=== PATIENT | male | born 1965 | race African-American/Black ===

== ENCOUNTER 2019-01-22 05:26 | Outpatient (CLI) | payer MEDICAID | END 2019-01-22 05:27 | disposition critical access hospital (66) | LOC: EMS 05:26 | PROVIDERS: ATTEND Surgery | DX: R60.0 Localized edema (principal); R51 Headache | CPT/HCPCS: A0425; A0429 ==

== ENCOUNTER 2019-01-22 05:43 | Emergency (ER) | payer MEDICAID ==
[2019-01-22] MEDS ORDERED: methylPREDNISolone SUCCINATE 125 MG/2 ML VIAL IVP STA (05:53)
[2019-01-22] MEDS ORDERED: HYDROCORTISONE 1% CREAM 28 GM TUBE TOP ONE (05:56)
[2019-01-22] MEDS ORDERED: diphenhydrAMINE 25 MG CAPSULE PO STA (05:58)
--- NOTE | 2019-01-22 06:02 | ED Physician Documentation ---
History of Present Illness - Stated complaint Stated Complaint: FACIAL SWELLING - Chief complaint Chief Complaint: Allergic Rx - Additonal information Additional information: 53-year-old male history of hypertension who presents with swelling of his face. Patient states that on Tuesday he used a cheap pedro dye that he found at the [employer] store on his pedro, and the next day he began having some irritation of his pedro. He took a shower and washed off the best he could. This morning he woke up and he had swelling of his upper lip and increased swelling of his face. He looked in the mirror when he saw how swollen his face he called 911 and and they brought him here. He denies rash, denies any swelling elsewhere. He has had some clear yellow drainage from the skin. No difficulty breathing, no swelling of his tongue. Review of Systems Constitutional: denies: Fever Nose: denies: Rhinorrhea / runny nose Cardiac: denies: Chest pain / pressure Respiratory: denies: Dyspnea GI: denies: Abdominal Pain, Vomiting PD PAST MEDICAL HISTORY - Past Medical History Past Medical History: Yes Cardiovascular: Hypertension Psych: Anxiety - Past Surgical History Past Surgical History: No - Present Medications Home Medications: Ambulatory Orders Medication Instructions Recorded Confirmed Cephalexin [Keflex] 500 mg PO Q6H #20 capsule 01/22/19 Hydrocortisone 1% Oint 28 gm TP BID 5 Days #1 tube 01/22/19 [Hydrocortisone] diphenhydrAMINE [Benadryl] 25 mg PO Q4-6H PRN #20 capsule 01/22/19 predniSONE [Deltasone] 10 mg PO [id number] #42 tab 01/22/19 - Allergies Allergies/Adverse Reactions: Allergies Allergy/AdvReac Type Severity Reaction Status Date / Time No Known Drug Allergies Allergy Verified 01/22/19 05:45 - Social History Does the pt smoke?: Yes Smoking Status: Current every day smoker Does the pt drink ETOH?: No Does the pt have substance abuse?: No - Immunizations Immunizations are current?: Yes - POLST Patient has POLST: No PD ED PE NORMAL - Vitals Vital signs reviewed: Yes - General General: Alert and oriented X 3 - HEENT HEENT: Other (Over the lower face and the suspicion of a goatee there is erythema, edema, and some serous drainage/crusting. The upper lip is edematous externally. There are no mucosal lesions, no tongue swelling, no lower lip swelling.) - Neck Neck: Supple, no meningeal sign - Cardiac Cardiac: RRR, No murmur - Respiratory Respiratory: No respiratory distress, Clear bilaterally - Abdomen Abdomen: Normal bowel sounds, Soft, Non tender, Non distended - Extremities Extremities: No deformity - Neuro Neuro: Alert and oriented X 3 - Psych Psych: Normal mood, Normal affect Results - Vitals Vitals: Vital Signs - 24 hr 01/22/19 05:45 Temperature 37.2 C Heart Rate 92 Respiratory 16 Rate Blood Pressure 152/99 H O2 Saturation 100 Oxygen O2 Source Room air PD MEDICAL DECISION MAKING - ED course Complexity details: considered differential (Contact dermatitis, allergic reaction, anaphylaxis, angioedema) ED course: On exam patient has some swelling and erythema around his mouth and distribution of his pedro, but the internal surface of the mouth are spared, he has no tongue swelling, no difficulty breathing, and a widely patent airway. On exam patient has an obvious contact dermatitis. He was given Solu-Medrol as well as Benadryl, and observed in the emergency department for several hours. During this time he had slow and gradual improvement in his swelling. He has no signs of anaphylaxis or more serious allergic reaction at this time. We did attempt to trim patient's pedro to prevent more allergen exposure. I spoke with him and explained the diagnosis and the likely course of his illness, prescribed him a steroid taper, Benadryl, hydrocortisone ointment, and keflex (Wounds are at high risk for superinfection and it is difficult to distinguish this from the dermatitis clinically, so we will cover for 5 days). Patient feels comfortable discharging home, and continues to have no trouble breathing and no progression of his symptoms. Strict return precautions including any intraoral lesions, tongue swelling, or breathing, diffuse rash, vomiting, worsening swelling, or fe alex were discussed, and patient was discharged home. Departure - Departure Disposition: 01 Home, Self Care Clinical Impression: Contact allergic reaction Condition: Good Prescriptions: Cephalexin [Keflex] 500 mg PO Q6H #20 capsule diphenhydrAMINE [Benadryl] 25 mg PO Q4-6H PRN #20 capsule PRN Reason: Allergy Symptoms Hydrocortisone 1% Oint [Hydrocortisone] 28 gm TP BID 5 Days #1 tube predniSONE [Deltasone] 10 mg PO [id number] #42 tab Comments: You were seen today due to an allergic reaction to pedro dye. You were given steroids, this should help with the swelling. Please use the hydrocortisone ointment twice a day on the affected region. Take the entire course of the steroid taper. You may also take Benadryl as prescribed. I am prescribing you 5 days of antibiotic to help prevent your skin from becoming infected, please take the entire course. If you are lips are becoming more swollen, if you are having any difficulty breathing, if you are having swelling of your tongue, or any other concerning symptoms, return to the emergency department immediately. Forms: Activity restrictions
[2019-01-22 07:54] VITALS: BP 158/96
== END 2019-01-22 07:54 | disposition home or self-care (01) ==
LOC: ED 05:43
DX: L23.4 Allergic contact dermatitis due to dyes (principal); I10 Essential (primary) hypertension; F17.200 Nicotine dependence, unspecified, uncomplicated
CPT/HCPCS: 96374; 99284; A9270

== ENCOUNTER 2019-02-06 09:55 | Emergency (ER) | payer MEDICAID ==
[2019-02-06] MEDS ORDERED: ONDANSETRON 4 MG/2 ML VIAL IVP STA (10:26)
[2019-02-06] MEDS ORDERED: SODIUM CHLORIDE 0.9% 1,000 ML IV ONE (10:26)
--- NOTE | 2019-02-06 10:26 | ED Physician Documentation ---
History of Present Illness - Stated complaint Stated Complaint: ABD PX/VOMITING - Chief complaint Chief Complaint: Abd Pain - Additonal information Additional information: This is a 53-year-old male who presents with nausea vomiting and generalized abdominal discomfort, as well as urinary urgency. Patient states that multiple people at his work have been sick, and several days ago he began feeling under the weather. He now has some diffuse Abdominal cramping and soreness, which is worse in the left upper quadrant in the left lower quadrant. Since yesterday he began having some urinary urgency, at times has been unable to make it to the bathroom before he urinates. He has had no diarrhea, no fecal incontinence. No weakness or numbness in his legs or arms. Review of Systems Constitutional: denies: Fever Cardiac: denies: Chest pain / pressure Respiratory: denies: Dyspnea GI: reports: Abdominal Pain, Vomiting : reports: Frequency Neurologic: denies: Focal weakness, Numbness PD PAST MEDICAL HISTORY - Past Medical History Cardiovascular: Hypertension Psych: Anxiety - Past Surgical History Past Surgical History: No - Present Medications Home Medications: Ambulatory Orders Medication Instructions Recorded Confirmed Hydrocortisone 1% Oint 28 gm TP BID 5 Days #1 tube 01/22/19 [Hydrocortisone] diphenhydrAMINE [Benadryl] 25 mg PO Q4-6H PRN #20 capsule 01/22/19 Ondansetron Odt [Zofran] 4 mg TL Q6H PRN #10 tablet 02/06/19 Tamsulosin [Flomax] 0.4 mg PO DAILY #14 capsule 02/06/19 hydroCHLOROthiazide 25 mg PO 02/06/19 [Hydrochlorothiazide] hydroCHLOROthiazide 25 mg PO DAILY #30 tablet 02/06/19 [Hydrochlorothiazide] - Allergies Allergies/Adverse Reactions: Allergies Allergy/AdvReac Type Severity Reaction Status Date / Time No Known Drug Allergies Allergy Verified 01/22/19 05:45 - Social History Does the pt smoke?: Yes Smoking Status: Current every day smoker Does the pt drink ETOH?: No Does the pt have substance abuse?: No - Immunizations Immunizations are current?: Yes - POLST Patient has POLST: No PD ED PE NORMAL - Vitals Vital signs reviewed: Yes - General General: Alert and oriented X 3, No acute distress - HEENT HEENT: PERRL - Neck Neck: Supple, no meningeal sign - Cardiac Cardiac: Other (Regular rate and rhythm on my exam) - Respiratory Respiratory: No respiratory distress, Clear bilaterally - Abdomen Abdomen: Soft, Other (Mild left upper quadrant pain and moderate left suprapubic pain to palpation,No guarding, no right lower quadrant or right upper quadrant pain.) - Male Male : Other (Penis and testicles are normal in appearance, he has no testicular tenderness, no overlying skin changes.) - Derm Derm: Warm and dry - Extremities Extremities: No deformity - Neuro Neuro: Alert and oriented X 3, bolt sorter 2-12 intact, No motor deficit, No sensory deficit - Psych Psych: Normal mood, Normal affect Results - Vitals Vitals: Vital Signs - 24 hr 02/06/19 02/06/19 02/06/19 10:00 10:40 11:00 Temperature 37.2 C 37.1 C Heart Rate 114 H 78 97 Respiratory 18 18 18 Rate Blood Pressure 178/117 H 160/103 H 151/103 H O2 Saturation 99 99 97 02/06/19 02/06/19 02/06/19 11:33 12:10 13:29 Temperature 37.0 C Heart Rate 95 90 91 Respiratory 16 16 16 Rate Blood Pressure 167/102 H 160/99 H 158/97 H O2 Saturation 99 99 100 Oxygen O2 Source Room air - Labs Labs: Laboratory Tests 02/06/19 02/06/19 02/06/19 10:02 10:02 10:30 WBC 6.2 RBC 4.82 Hgb 13.8 L Hct 42.2 MCV 87.6 MCH 28.6 MCHC 32.7 RDW 13.2 Plt Count 248 MPV 9.1 Neut # (Auto) 3.3 Lymph # (Auto) 2.3 [place] # (Auto) 0.4 Eos # (Auto) 0.1 Baso # (Auto) 0.0 Absolute Nucleated RBC 0.00 Nucleated RBC % 0.0 Sodium 140 Potassium 4.1 Chloride 100 L Carbon Dioxide 27 Anion Gap 13.0 BUN 15 Creatinine 0.9 Estimated GFR (MDRD) 107 Glucose 109 H Calcium 9.3 Total Bilirubin 0.9 AST 34 ALT 42 Alkaline Phosphatase 70 Total Protein 8.0 Albumin 4.8 Globulin 3.2 Albumin/Globulin Ratio 1.5 Lipase 35 Urine Color YELLOW Urine Clarity CLEAR Urine pH 6.5 Ur Specific [place] 1.010 Urine Protein NEGATIVE Urine Glucose (UA) NEGATIVE Urine Ketones NEGATIVE Urine Occult Blood NEGATIVE Urine Nitrite NEGATIVE Urine Bilirubin NEGATIVE Urine Urobilinogen 0.2 (NORMAL) Ur Leukocyte Esterase NEGATIVE Ur Microscopic Review NOT INDICATED Urine Culture Comments NOT INDICATED - Rads (name of study) CT abd/pelvis Radiology: Other PD MEDICAL DECISION MAKING - ED course Complexity details: considered differential (Gastroenteritis, dehydration, electrolyte abnormality, viral syndrome, UTI, pyelonephritis, acute urinary retention) ED course: On arrival patient is tachycardic in triage, nontoxic-appearing on exam. His heart rate has normalized at the time of my physical exam. He has Some left upper quadrant and left lower quadrant tenderness on examination, no testicular tenderness or lesions, no signs of torsion. He was given Zofran and IV fluids and had some improvement in his symptoms. Labs are unremarkable, urine is negative for infection. Given his urinary incontinence and his tenderness, CT scan was obtained which shows thickened bladder and enlarged prostate suggestive of potential urinary outlet obstruction, no other acute abdominal findings. He has no weakness or numbness in his legs, no specific back pain to suggest cauda equina. Postvoid residual is 195ml. Talking to patient he has had nocturia of ~3 times a night chronically, he also does have increased urinary frequency at baseline. I think that his urinary symptoms are likely due to chronically enlarged prostate, and we will trial him on a course of tamsulosin until he can follow-up with his primary care provider on this. I also discussed that hydrochlorothiazide may not be the best choice for his blood pressure medication as this can lead to urinary frequency as well. Regarding his vomiting, he likely does have a viral syndrome or gastroenteritis, given he has been exposed to multiple people with similar complaints. I discussed supportive care and prescribed him Zofran for this, and emphasized the importance of hydration. Patient agreed with this plan. I discussed return precautions with any neurolo gic symptoms, increasing abdominal pain, persistent vomiting or any other concerning symptoms and patient was discharged home in good condition Departure - Departure Disposition: 01 Home, Self Care Clinical Impression: Vomiting Qualifiers: Vomiting type: unspecified Vomiting Intractability: non-intractable Nausea presence: with nausea Qualified Code(s): R11.2 - Nausea with vomiting, unspecified Condition: Good Instructions: ED Nausea Vomiting Follow-Up: Your,PCP [Other] Prescriptions: hydroCHLOROthiazide [Hydrochlorothiazide] 25 mg PO DAILY #30 tablet Ondansetron Odt [Zofran] 4 mg TL Q6H PRN #10 tablet PRN Reason: Nausea / Vomiting Tamsulosin [Flomax] 0.4 mg PO DAILY #14 capsule Comments: You were seen today for nausea, vomiting, abdominal pain. Your labs are reassuring, your CT scan does show some thickening of your bladder enlargement of your prostate, it is possible that you are having some trouble emptying her bladder completely. You may try the Flomax to help with this, and please follow- up with your primary care provider on this issue. You may also use the Zofran for nausea. It is okay to take Tylenol and ibuprofen for discomfort. If you develop worsening symptoms such as increasing abdominal pain, blood in your vomit, or any other concerning symptoms please return to the emergency department. Forms: Activity restrictions
[2019-02-06 10:27] LABS: BASOPHILS % (AUTO) 0.7 %; EOSINOPHILS # (AUTO) 0.1 10^3/uL (0.0-0.7); EOSINOPHILS % (AUTO) 1.6 %; HGB - HEMOGLOBIN 13.8 g/dL (14.0-18.0); LYMPHOCYTES # (AUTO) 2.3 10^3/uL (1.5-3.5); LYMPHOCYTES % (AUTO) 37.7 %; MEAN CORPUSCULAR HEMOGLOBIN 28.6 pg (27.0-31.0); MEAN CORPUSCULAR HGB CONC 32.7 g/dL (32.0-36.0); MEAN CORPUSCULAR VOLUME 87.6 fL (80.0-94.0); MEAN PLATELET VOLUME 9.1 fL (7.4-11.4); MONOCYTES # (AUTO) 0.4 10^3/uL (0.0-1.0); MONOCYTES % (AUTO) 5.7 %; NEUTROPHILS # (AUTO) 3.3 10^3/uL (1.5-6.6); PLT - PLATELET COUNT 248 10^3/uL (130-450); RED BLOOD COUNT 4.82 10^6/uL (4.70-6.10); RED CELL DISTRIBUTION WIDTH 13.2 % (12.0-15.0); WHITE BLOOD COUNT 6.2 x10^3/uL (4.8-10.8)
[2019-02-06 10:42] LABS: ALBUMIN 4.8 g/dL (3.2-5.5); ALBUMIN/GLOBULIN RATIO 1.5 (1.0-2.2); BILIRUBIN,TOTAL 0.9 mg/dL (0.2-1.0); CALCIUM 9.3 mg/dL (8.5-10.3); CREATININE 0.9 mg/dL (0.6-1.2)
[2019-02-06 10:59] LABS: BILIRUBIN,URINE NEGATIVE (NEGATIVE); GLUCOSE, URINE (UA) NEGATIVE (NEGATIVE); KETONES,URINE (UA) NEGATIVE (NEGATIVE); LEUKOCYTE ESTERASE, URINE NEGATIVE (NEGATIVE); NITRITE,URINE NEGATIVE (NEGATIVE); OCCULT BLOOD,URINE NEGATIVE (NEGATIVE); PH,URINE 6.5 PH (5.0-7.5); PROTEIN,URINE NEGATIVE (NEGATIVE); UROBILINOGEN,URINE 0.2 (NORMAL) E.U./dL (NORMAL)
[2019-02-06 11:02] LABS: CLARITY,URINE CLEAR (CLEAR)
[2019-02-06] MEDS ORDERED: IOVERSOL 320 100 ML VIAL IVP ONE ×2 (12:00→12:18)
--- NOTE | 2019-02-06 13:14 | CT Report ---
Reason: Suprapubic back pain, LUQ pain, uri incontinence Procedure Date: 02/06/2019 Accession Number: [id number] / [id number] Procedure: CT - Abdomen/Pelvis W CPT Code: Final Report FULL RESULT: EXAM: CT ABDOMEN AND PELVIS EXAM DATE: 02/06/2019 12:11 PM. CLINICAL HISTORY: Suprapubic back pain, left upper quadrant pain, urinary incontinence. COMPARISONS: None. TECHNIQUE: Routine helical CT imaging was performed through the abdomen and pelvis. IV contrast: Optiray 320 100 mL. Enteric contrast: No. Reconstructions: Coronal and sagittal. In accordance with CT protocol optimization, one or more of the following dose reduction techniques were utilized for this exam: automated exposure control, adjustment of mA and/or KV based on patient size, or use of iterative reconstructive technique. FINDINGS: Lung Bases: Unremarkable. Liver: Normal. No masses. Gallbladder/Bile Ducts: Unremarkable. Spleen: Normal. Pancreas: Normal. Adrenal Glands: Normal. Kidneys: Normal. No masses or hydronephrosis. Peritoneal Cavity/Bowel: There is no bowel obstruction. There is no free fluid or free air. There is no lymphadenopathy by size criteria. The appendix is not positively identified, there are no inflammatory changes in the cecal region. Pelvic Organs: Focal calcification in the deep left pelvis is felt to represent a phlebolith rather than distal ureterolithiasis. There is mild bladder wall thickening in the setting of a prominent prostate lifting the bladder base. Vasculature: Mild atherosclerotic disease without aneurysm detected. Bones: No significant abnormality. Other: None. IMPRESSION: Mildly thickened bladder wall in the setting of prominent prostate, correlate to symptoms of bladder outlet obstruction. RADIA
[2019-02-06 14:12] VITALS: BP 169/103
== END 2019-02-06 14:12 | disposition home or self-care (01) ==
LOC: ED 09:55
DX: R11.2 Nausea with vomiting, unspecified (principal); R10.12 Left upper quadrant pain; R10.32 Left lower quadrant pain; N40.1 Benign prostatic hyperplasia with lower urinary tract symptoms; R35.0 Frequency of micturition; R35.1 Nocturia; R00.0 Tachycardia, unspecified; I10 Essential (primary) hypertension; F17.200 Nicotine dependence, unspecified, uncomplicated
CPT/HCPCS: 36415; 74177; 80053; 81003; 83690; 85025; 96361; 96374; 99284; Q9967; 81001; 87086

== ENCOUNTER 2019-02-20 12:00 | Outpatient (CLI) | payer MEDICAID | END 2019-02-20 12:01 | disposition critical access hospital (66) | LOC: EMS 12:00 | PROVIDERS: ATTEND Surgery | DX: R45.851 Suicidal ideations (principal) | CPT/HCPCS: A0425; A0429; A0999 ==

== ENCOUNTER 2019-02-20 12:30 | Emergency (ER) | payer MEDICAID ==
--- NOTE | 2019-02-20 13:00 | ED Physician Documentation ---
History of Present Illness - Stated complaint Stated Complaint: SI - Chief complaint Chief Complaint: MHE - Additonal information Additional information: This is a 53-year-old male who is known to me, he is presenting with now reso lved suicidal ideation. Patient lost his job at the [employer] last week and broke up with his girlfriend late last week. Over the weekend he did some binge drinking and this morning he states that felt like his life was collapsing down around him, and he was in a crisis to the point where he was considering taking some medications and attempt to take his life. He did not actually take any medications. He actually stopped taking his zoloft on Tuesday. He called a friend and made a statement to this effect, so his friend called the police. He subsequently called his employer at the [employer] who gave him his job back as long he shows up tomorrow morning. He now states that he feels much better, the main reason for his suicidal ideation was the fact that he lost his girlfriend in addition to losing his job and having very little money. Now that he has his job back he is not suicidal, he has a good plan going forward. He does feel that he is in early stages of alcohol withdrawal given he is drank heavily over the last 2 days. Feels a little bit tremulous. He drank 1 beer earlier this morning but threw it up. He denies other drug use. Review of Systems Constitutional: denies: Fever Cardiac: denies: Chest pain / pressure Respiratory: denies: Dyspnea PD PAST MEDICAL HISTORY - Past Medical History Past Medical History: Yes Cardiovascular: Hypertension Psych: Anxiety - Past Surgical History Past Surgical History: No - Present Medications Home Medications: Ambulatory Orders Medication Instructions Recorded Confirmed Hydrocortisone 1% Oint 28 gm TP BID 5 Days #1 tube 01/22/19 [Hydrocortisone] diphenhydrAMINE [Benadryl] 25 mg PO Q4-6H PRN #20 capsule 01/22/19 Ondansetron Odt [Zofran] 4 mg TL Q6H PRN #10 tablet 02/06/19 Tamsulosin [Flomax] 0.4 mg PO DAILY #14 capsule 02/06/19 hydroCHLOROthiazide 25 mg PO 02/06/19 [Hydrochlorothiazide] hydroCHLOROthiazide 25 mg PO DAILY #30 tablet 02/06/19 [Hydrochlorothiazide] - Allergies Allergies/Adverse Reactions: Allergies Allergy/AdvReac Type Severity Reaction Status Date / Time No Known Drug Allergies Allergy Verified 02/20/19 12:32 - Social History Does the pt smoke?: Yes Smoking Status: Current every day smoker Does the pt drink ETOH?: No Does the pt have substance abuse?: No - Immunizations Immunizations are current?: Yes - POLST Patient has POLST: No PD ED PE NORMAL - Vitals Vital signs reviewed: Yes - General General: Alert and oriented X 3 - HEENT HEENT: Atraumatic - Cardiac Cardiac: Other (Tachycardic at 106 on my exam, regular rate) - Respiratory Respiratory: No respiratory distress, Clear bilaterally - Abdomen Abdomen: Soft, Non tender, Non distended - Neuro Neuro: Alert and oriented X 3, concessionist 2-12 intact, No motor deficit, No sensory deficit Results - Vitals Vitals: Oxygen O2 Source Room air PD MEDICAL DECISION MAKING - ED course Complexity details: considered differential (SI, depression, alcohol use) ED course: Pt presents with now resolved SI. He is feeling better since he got his job back and did not want to come in but his friend called police because of what he said while he was drinking and while he still did not have his job. He did not ingest anything, did not take any suicidal action, is overall well appearing and I do not feel labs will be helpful at this time. He does have very mild alcohol withdrawal symptoms and librium was given with good effect. His abdomen is non- tender, he is tolerating PO, and is feeling well. SW evaluated and agrees that he is safe for discharge. He was given an additional dose of librium prior to discharge and strict return precautions discussed. Avoidance of alcohol recommended. Pt agrees and was discharged home. Departure - Departure Disposition: 01 Home, Self Care Clinical Impression: Depression Qualifiers: Depression Type: unspecified Qualified Code(s): F32.9 - Major depressive disorder, single episode, unspecified Condition: Good Instructions: ED Depression Follow-Up: Your,PCP [Other] - Within 1 week Comments: You were seen today because you had some thoughts of harming yourself. I am glad that you are feeling better now. If you have recurrent thoughts of harming yourself, please seek help. You may call the suicide prevention hotline ( ), or call 911, or return to the emergency department at any time. Please Follow-up with your primary care provider soon as possible, is also a good idea to establish with a therapist/counselor/mental health professional. You should also return to emergency department if you develop symptoms of severe alcohol withdrawal such as confusion, hallucinations, persistent vomiting, or other concerning symptoms. Discharge Date/Time: 02/20/19 16:37
[2019-02-20] MEDS ORDERED: chlordiazePOXIDE 25 MG CAPSULE PO STA ×2 (13:18→16:17)
[2019-02-20] MEDS ORDERED: ONDANSETRON ODT 4 MG TABLET TL STA (13:22)
[2019-02-20 15:59] VITALS: BP 147/110
== END 2019-02-20 16:37 | disposition home or self-care (01) ==
LOC: EDBD → EDUNIT# → ED 12:30
DX: F32.9 Major depressive disorder, single episode, unspecified (principal); R45.851 Suicidal ideations; R25.1 Tremor, unspecified; I10 Essential (primary) hypertension; F17.200 Nicotine dependence, unspecified, uncomplicated
CPT/HCPCS: 99283; A9270; Q0162; 80053; 80307; 80320; 80329; 83690; 84443; 85025